=== PATIENT | male | born 1990 | race Caucasian/White ===

== ENCOUNTER → 2021-01-05 | Outpatient (CLI) | payer OTHER ==
[~2021-01-05] MED LIST: CLEOCIN HCL300 MG PO
== END ==
LOC: EMI 12-25 16:00
DX: M54.5 Low back pain (principal); M51.26 Other intervertebral disc displacement, lumbar region; M48.061 Spinal stenosis, lumbar region without neurogenic claudication; M51.27 Other intervertebral disc displacement, lumbosacral region; M48.07 Spinal stenosis, lumbosacral region
CPT/HCPCS: 72148

== ENCOUNTER → 2021-01-21 | Outpatient (CLI) | payer OTHER | LOC: KOH-I 01-18 15:00 → CT 08:30 | DX: J35.3 Hypertrophy of tonsils with hypertrophy of adenoids (principal) | CPT/HCPCS: 70491; Q9967 ==